=== PATIENT | female | born 2000 | race Caucasian/White ===

== ENCOUNTER 2019-06-13 07:51 | Emergency (ER) | payer MEDICAID, OTHER ==
[~2019-06-13] VITALS: Ht 175.3 cm; Wt 108.9 kg
[2019-06-13 07:56] VITALS: BP_SYST 158
[2019-06-13] MEDS: KETOROLAC TROMETHAMINE 60 MG/2 ML VIAL IM ONE (08:36)
[2019-06-13 09:42] VITALS: BP_SYST 155
== END 2019-06-13 09:42 | disposition home or self-care (01) ==
LOC: SED 07:51
DX: R51 Headache (principal); R03.0 Elevated blood-pressure reading, without diagnosis of hypertension
CPT/HCPCS: 72040; 96372; 99283; J1885

== ENCOUNTER 2021-04-11 16:51 | Emergency (ER) | payer MEDICAID ==
[~2021-04-11] VITALS: Ht 175.3 cm; Wt 149.7 kg
[2021-04-11 17:05] VITALS: BP_SYST 144
--- NOTE | 2021-04-11 17:05 | NUR ---
Pt to bed 3 for evaluation.
--- NOTE | 2021-04-11 17:10 | NUR ---
Pt AAO and ambulatory reporting bilateral lower extremity weakness. Pt reports that she went to 2 [employer] concerts this weekend and at the final venue her left knee buckled. Pt denies any other injury. Pt reports that she has history of repaired left hip and depression. Pt reports 4/10 on pain scale.
--- NOTE | 2021-04-11 18:26 | NUR ---
PT IN NAD. [facility] FOR DISPO.
[2021-04-11] MEDS ORDERED: IBUP-1969 PO (20:51)
--- NOTE | 2021-04-11 22:00 | NUR ---
PT MOVED TO [facility] FOR NEED OF THE BED.
--- NOTE | 2021-04-11 22:20 | NUR ---
PT GIVEN INSTURCTIONS BY TIN VALDEZ ON HOW TO USE CRUTCHES. KNEE IMMOBILZER PLACE ON PT. TOLERATED WELL
--- NOTE | 2021-04-11 22:30 | NUR ---
Patient given written and verbal discharge instructions and verbalizes understanding. ER MD discussed with patient the results and treatment provided. Patient in stable condition. ID arm band removed. Rx of IBUPROFEN given. Patient educated on pain management and to follow up with PMD. Pain Scale 2/10. Opportunity for questions provided and answered. Medication side effect fact sheet provided.
[2021-04-12 01:02] VITALS: BP_SYST 144
== END 2021-04-11 22:30 | disposition home or self-care (01) ==
LOC: SED 16:51
DX: S80.02XA Contusion of left knee, initial encounter (principal); M76.9 Unspecified enthesopathy, lower limb, excluding foot; X58.XXXA Exposure to other specified factors, initial encounter; Y93.89 Activity, other specified; Y92.89 Other specified places as the place of occurrence of the external cause; Y99.8 Other external cause status
CPT/HCPCS: 99283